=== PATIENT | male | born 1960 | race Caucasian/White ===

== ENCOUNTER 2021-05-09 08:00 | Day surgery (SDC) | payer MEDICARE, BC ==
[2021-05-09] MEDS: Bupivacaine 0.5% 50 ML MDV ONE ×2 (07:35→12:12)
[2021-05-09] MEDS: Lidocaine 1% with EPINEPHrine 1:100,000 50 ML MDV ONE ×2 (07:39→12:12)
[~2021-05-09 08:00] MED LIST: Celecoxib 200 MG Cap PO ONE; Dextrose 5%-Lactated Ringers 1,000 ML IV SCH; Midazolam 1 MG/ML 2 ML SDV ONE; Propofol 200 MG/20 ML SDV ONE; fentaNYL 100 MCG/2 ML SDV ONE
[2021-05-09] MEDS ORDERED: ceFAZolin 2 GM in Premix Bag 1 BAG IV ONE (08:15)
[2021-05-09] MEDS ORDERED: ceFAZolin 2 GM in Sodium Chloride 0.9% 50 ML IV ONE (08:15)
[2021-05-09] MEDS ORDERED: Acetaminophen 500 MG Tab PO ONE (08:15)
[2021-05-09] MEDS ORDERED: Midazolam 1 MG/ML 2 ML SDV ONE (11:49)
[2021-05-09] MEDS ORDERED: fentaNYL 100 MCG/2 ML SDV ONE (11:49)
[2021-05-09] MEDS ORDERED: Propofol 200 MG/20 ML SDV ONE ×2 (12:03→12:25)
[2021-05-09] MEDS ORDERED: Ketorolac 30 MG/ML SDV ONE (12:53)
[2021-05-09] MEDS ORDERED: oxyCODONE 5 MG Tab PO PRN (13:56)
--- NOTE | 2021-05-20 15:57 | OR ---
DATE OF PROCEDURE: 05/09/2021 SURGEON: Jarod Baxter MD PREOPERATIVE DIAGNOSIS: Right inguinal hernia. POSTOPERATIVE DIAGNOSES: 1. Incarcerated direct right inguinal hernia. 2. Right ilioinguinal and iliohypogastric nerves at risk for scar entrapment. OPERATIVE PROCEDURES: Right inguinal exploration with: 1. Repair of incarcerated right inguinal hernia with mesh (50500). 2. Excision of portion of right ilioinguinal nerve (44759). 3. Excision of portion of right iliohypogastric nerve (34344). ANESTHESIA: Local plus IV sedation. INDICATIONS FOR PROCEDURE: This is a 60-year-old male presenting with increasingly symptomatic right inguinal hernia. After preoperative evaluation and discussion, he wished to proceed with hernia repair using mesh plug technique. Potential risks of the procedure including bleeding, infection, injury to underlying viscera, problems with the mesh becoming infected or hernia recurring, and chronic pain following the procedure were all gone over, and the patient wishes to proceed. We will often divide 1 or 2 of the nerves passing into the operative field so as to avoid problems with postoperative neuropathic pain were gone over and the fact that there would be a numb patch somewhat medial and anterior to the incision were reviewed, and the patient wishes to proceed. DETAILS OF PROCEDURE: The patient was taken to the operating room and placed in a supine position. After IV sedation was administered, the abdomen and groin areas were prepped and draped. The right inguinal area was anesthetized with 1% lidocaine mixed with Marcaine, and a standard right inguinal incision was made and carried down through the skin and subcutaneous tissue through the external oblique aponeurosis. The external aponeurosis was then reflected superiorly and inferiorly. Both the ilioinguinal and iliohypogastric nerves came across the operative field and would be at risk for scar entrapment problems with subsequent suturing and placement of the flat portion of the mesh system especially. Given this, these were both divided and out to the far end of the operative field laterally where they were divided and sent for histologic evaluation. The cord structures were then mobilized upward. The patient was noted to have a direct hernia with a large defect in the inguinal floor. This contained some incarcerated urinary bladder and perivesical fat. The transversalis fascia overlying this area was then incised which then allowed reduction of the hernia contents and dissection underneath the conjoined tendon superiorly, medially, and laterally and exposure of the Anthony ligament. An extra large mesh plug was then placed into the defect. This was affixed initially to the Anthony ligament with titanium tacking screws and to the underside of the conjoined tendon medially, superiorly, and laterally with horizontal mattress sutures of 0 Vicryl stitch. Once this appeared to be satisfactory in terms of occlusion of the hernia site, the conjoined tendon was then secured to the shelving portion of the inguinal ligament with a running 0 Vicryl stitch as well. The internal ring at this point appeared to be satisfactory, and the cord structures were then encircled with the flat portion of mesh plug system which was sutured to the floor lateral to the cord structures and then affixed to the pubic tubercle with a titanium tacking screw. Over the cord structures, the external oblique aponeurosis was approximated with 4-0 Vicryl stitch as was the Cee fascia and the skin closed with a 4-0 Vicryl subcuticular stitch. A dressing was applied. There were no evident complications. Physician assistant finance director, Marybel Alaniz, played an essential role in assisting in this case, helping to position the patient, retract structures as needed, as well as suturing and cutting sutures when indicated. Her presence improved the patient's safety and decreased the operative time. Jarod Baxter MD /[id number]
== END 2021-05-09 14:30 | disposition home or self-care (01) ==
LOC: JP.SDS 08:00
PROVIDERS: ATTEND Surgery
DX: K40.30 Unilateral inguinal hernia, with obstruction, without gangrene, not specified as recurrent (principal); I48.91 Unspecified atrial fibrillation
CPT/HCPCS: 49507; 88302; 88305; A9270; C1713; C1781; J0690; J1885; J2250; J2704; J3010; J3490; J7121

== ENCOUNTER → 2022-08-21 | Day surgery (SDC) | payer MEDICARE, BC ==
[~2022-08-21] MED LIST changes: -Celecoxib 200 MG Cap PO ONE; +Metoprolol Succinate 25 MG Tab.ER PO ONE
== END ==
LOC: JP.SDS 06:00
PROVIDERS: ATTEND Surgery
DX: Z12.11 Encounter for screening for malignant neoplasm of colon (principal); D12.5 Benign neoplasm of sigmoid colon; K57.30 Diverticulosis of large intestine without perforation or abscess without bleeding; G47.33 Obstructive sleep apnea (adult) (pediatric); I48.91 Unspecified atrial fibrillation; I50.9 Heart failure, unspecified; Z79.899 Other long term (current) drug therapy; Z88.5 Allergy status to narcotic agent; Z91.030 Bee allergy status; Z86.010 Personal history of colon polyps
CPT/HCPCS: 45380; 45381; 45385; 88305; A9270; J2250; J2704; J3010; J7121

== ENCOUNTER 2025-09-08 07:24 | Day surgery (SDC) | payer MEDICARE, BC ==
[~2025-09-08 07:24] MED LIST changes: -Dextrose 5%-Lactated Ringers 1,000 ML IV SCH; -Metoprolol Succinate 25 MG Tab.ER PO ONE; -fentaNYL 100 MCG/2 ML SDV ONE; +fentaNYL 50 MCG/ML SDV ONE
[2025-09-08] MEDS: Lactated Ringers 1,000 ML IV SCH (07:58)
[2025-09-08] MEDS: Ondansetron 4 MG/2 ML SDV IVPUSH ONE (10:10)
== END 2025-09-08 10:58 | disposition home or self-care (01) ==
LOC: JP.SDS 07:24
PROVIDERS: ATTEND Surgery
DX: Z12.11 Encounter for screening for malignant neoplasm of colon (principal); K51.40 Inflammatory polyps of colon without complications; K57.30 Diverticulosis of large intestine without perforation or abscess without bleeding; I10 Essential (primary) hypertension; I48.91 Unspecified atrial fibrillation; Z88.5 Allergy status to narcotic agent; Z91.09 Other allergy status, other than to drugs and biological substances; Z79.82 Long term (current) use of aspirin; Z79.899 Other long term (current) drug therapy; Z87.891 Personal history of nicotine dependence; Z86.0100 Personal history of colon polyps, unspecified; Z91.030 Bee allergy status
CPT/HCPCS: 00811; 45385; J2250; J2405; J2704; J3010; J7120; 88305